=== PATIENT | female | born 1975 ===

== ENCOUNTER 2019-02-08 05:30 | Day surgery (SDC) | payer OTHER ==
[~2019-02-08 05:30] MED LIST: ABILIFY MYCITE15 MG; COGENTIN2 MG/2 ML; LEXAPRO20 MG; RESTORIL7.5 MG
== END 2019-02-08 13:50 | disposition home or self-care (01) ==
LOC: CIR.AMB 05:30
DX: H72.01 Central perforation of tympanic membrane, right ear (principal)